=== PATIENT | female | born 1965 | race Caucasian/White ===

== ENCOUNTER → 2016-08-11 | Outpatient (CLI) | payer MEDICARE, OTHER ==
[~2016-08-11] MED LIST: /HCTZ25TA PO; /MOXI40TA PO; /PREG50CA PO; ACET500C PO; APRI0.37 PO; APRI0.372 PO; ASPI325T; BACTRIMDS PO; CALC600T10 OR; CENTTAB12 PO; COLA100C2; CYMB60CA3 PO; CYMBALTA PO; DIFLUC150 PO; ESTE500T PO; FISH1000 OR; FOLI800T OR; GUMMCHW PO; HUMIRA SQ; KEFL500C; KENALOG1 TOPICAL; LIAL1.2T PO; LIPITOR10 PO; LISI10TA2 PO; MACROBID PO; NEUR300C; NEUR400C OR; NEXIUM40 PO; OXYC-208 PO; PERC5TAB8; PRIL40CA OR; PRILOSEC20 PO; PROTONIX40 PO; SKELAXIN8 PO; SOMA350T PO; TOPR25TA OR; TRAM50TA2 PO; TYLENOL; VIACTIV CALCIUM; VITA100L PO; VITAMIN B COMPLE1 OR; XANA0.25; XANA0.25 OR; ZANTAC150 PO; ZELNORM PO; ZOCOR20 PO; [UNRECOGNIZED DRUG - OTHER]; [UNRECOGNIZED DRUG - OTHER] PO; [UNRECOGNIZED DRUG - OTHER] TOPICAL; [UNRECOGNIZED DRUG - OTHER] TOPICAL; [UNRECOGNIZED DRUG - OTHER] TOPICAL; atorvastatin PO; nucynta PO; savella PO; vicodin PO
--- NOTE | 2016-08-21 00:59 | ECWPNPC ---
PATIENT NAME: VAL WISDOM : 1965 GENDER: FEMALE VISIT DATE: 08/11/2016 DISCHARGE DATE: 08/11/16 0000 VISIT LOCKED DATE TIME: PHYSICIAN: GUMARO RODRIGUEZ RESOURCE: GUMARO RODRIGUEZ REASON FOR APPOINTMENT 1. BACK HISTORY OF PRESENT ILLNESS HISTORY OF PRESENT ILLNESS: HERE FFOR F/U ON AN URGENT BASIS.FELL 16 ON ICE.LANDED ON BACK HURTING NECK,HEAD AND LOW BACK.DIDNT GO TO ER.HAVING INCREASE IN LOW BACK PAIN /RIGHT LEG PAIN.CONTINUES W NECK PAIN.CONTINUES WITH USE OF DCS WHICH IS HELPFUL.C/O MILD CONCUSSION LIKE SYMPTOMS.RATING PAIN VAS 6/10.HERE TO SEE FADY TODAY TO CHECK LEAD PLACEMENT AFTER FALL INJURY. FALL RISK SCREENING: SCREENING :NO FALLS IN THE PAST YEAR CURRENT MEDICATIONS TAKING OMEPRAZOLE 40 MG CAPSULE DELAYED RELEASE 1 CAPSULE ORALLY ONCE DAILY TAKING STOOL SOFTENER 100 MG CAPSULE 1 CAPSULE NEEDED ORALLY NEEDED TAKING TOPROL XL 25 MG TABLET EXTENDED RELEASE 24 HOUR 1 TAB(S) P.O. ONCE A DAY TAKING CYMBALTA 60 MG CAPSULE DELAYED RELEASE PARTICLES 1 CAPSULE ORALLY ONCE A DAY TAKING HYDROCHLOROTHIAZIDE 12.5 12.5MG TABLET 1 TAB(S) P.O. ONCE A DAY TAKING XANAX 0.5 MG TABLET 1 TAB(S) ORALLY THREE TIMES DAILY NEEDED TAKING CALCIUM 600+D 600-800 MG-UNIT TABLET 2 ORALLY TWICE A DAY TAKING METHOTREXATE 2.5 MG TABLET 5 ORALLY ONCE A WEEK TAKING CLOBETASOL PROPIONATE 0.05 % OINTMENT 1 APPLICATION TO AFFECTED AREA EXTERNALLY TO AFFECTED AREA TWICE A WEEK TAKING ZYRTEC ALLERGY 10 MG TABLET 1 TABLET ORALLY ONCE A DAY TAKING TRAMADOL HCL 50 MG TABLET 1 TABLET NEEDED ORALLY EVERY 6 HRSMDD4 TAKING FOLIC ACID 800 MCG TABLET 1 TAB(S) P.O. OCC NOT-TAKING OXYCODONE HCL 5 MG TABLET 2 ORALLY 2 TAB 1HR PRE PROC MDD2 NOT-TAKING VALIUM 10 MG TABLET 1 ORALLY 1 TAB 1HR PRE PROC. MDD1 NOT-TAKING OXYCODONE HCL 5 MG TABLET 1 ORALLY EVERY 6 HRS PRN MDD3 NOT-TAKING VITAMIN B COMPLEX OTC TABLET 1 TABLET ORALLY ONCE A DAY MEDICATION LIST REVIEWED AND RECONCILED WITH THE PATIENT PAST MEDICAL HISTORY CROHNS DISEASE ANXIETY DEPRESSION HYPERLIPIDEMIA ESOPHAGEAL REFLUX HYPERTENSION PSORIATIC ARTHRITIS PSORIASIS ENVIRONMENTAL ALLERGIES LSIL PAP, COLP-MILD DYSPLASIA 2009 ASCUS, CANNOT EXCLUDE LSIL, NEG HPV (12/2011) ALLERGIES PENICILLIN (FOR ALLERGIES USE ONLY): HIVES: ALLERGY TAPE: HIVES: ALLERGY LATEX: HIVES: ALLERGY MORPHINE SULFATE: DYSPNEA: SIDE EFFECTS REVIEW OF SYSTEMS CONSTITUTIONAL: ANY CHANGE IN YOUR MEDICAL CONDITION? NO . CHILLS NO . FEVER NO . INFECTION: DO YOU HAVE NEW INFECTIONS? NO . DO YOU HAVE HISTORY OF MRSA? NO . MUSCULOSKELETAL: ANY NEW PATTERNS OF PAIN OR NUMBNESS? NO . GASTROENTEROLOGY: ANY NEW CHANGE IN BOWEL CONTROL? NO . GENITOURINARY: ANY NEW CHANGE IN BLADDER CONTROL? NO . IS THERE A CHANCE YOU COULD BE ? NO . HEMATOLOGY/LYMPH: DO YOU TAKE ANY BLOOD THINNERS? (FOR EXAMPLE- COUMADIN, PLAVIX, AGGRENOX, PLATEL, PRADAXA, OR XARELTO) NO . WHEN WAS YOUR LAST DOSE? DATE: TIME: . NEUROLOGY: HAVE YOU FALLEN IN THE PAST 6 MONTHS? YES-FELL ON THE ICE DECEMVER 30 . ANY NEW EXTREMITY NUMBNESS OR WEAKNESS? NO . CARDIOLOGY: DO YOU HAVE A PACEMAKER OR DEFIBRILLATOR? NO . RESPIRATORY: HAVE YOU BEEN SICK IN THE PAST WEEK? NO . FEVER NO . FLU LIKE SYMPTOMS? NO . COUGH NO . INTEGUMENTARY: DO YOU HAVE ANY RASHES OR OPEN SORES? NO . ALLERGIC/IMMUNO: ARE YOU ALLERGIC TO SHELLFISH OR IV DYE? NO . ANY NEW ALLERGIES? NO . PSYCHIATRIC: DO YOU HAVE THOUGHTS OF HURTING YOURSELF OR SOMEONE ELSE? NO . ARE YOU ABUSED, NEGLECTED, OR IN AN UNSAFE ENVIRONMENT? NO . ENDOCRINOLOGY: ARE YOU DIABETIC? NO . OTHER: DO YOU NEED ANY PRESCRIPTIONS? NO . IF YES, PLEASE LIST: ____ . ANY NEW PROBLEMS WITH YOUR MEDICATIONS? NO . WHEN DID YOU LAST EAT? ____ . WHEN DID YOU LAST DRINK? ____ . WHAT DID YOU LAST DRINK? ____ . NAME OF PERSON DRIVING YOU HOME? ____ . DO YOU HAVE ANY OTHER QUESTIONS OR CONCERNS NO . REVIEWED BY: PROVIDER: GUMARO HAYES . VITAL SIGNS WT 118 LBS, HT 62.5 IN, BMI 21.24 INDEX, BP 132/81 MM HG, HR 98 /MIN, RR 18 /MIN, TEMP 96.5 F, OXYGEN SAT % 97, NA INITIALS TL 1137, REVIEWED BY: AM. EXAMINATION GENERAL EXAMINATION: LUNGS:LUNG SOUNDS ARE CLEAR. HEART:HEART RATE REGULAR. MUSCULOSKELETAL:*. LUMBAR SACRAL SPINEMUSCLE STRENGTH TESTING 5/5 BILATERAL. PALPATION: POSITIVE FOR PAIN OVER L/S SPINE. POSITIVE FOR PAIN OVER L/S PARSPINALS.SPECIFIC POINT TENDERNESS OVER RSIJ. ROJM TESTING WITH MARKED INCREASE IN PAIN WITH EXTENSION OF SPINE. NORMAL STEADY GAIT.MULTIPLE PSORIATIC PLAQUES.. ASSESSMENTS CERVICALGIA - M54.2 (PRIMARY) MYALGIA - M79.1 TREATMENT CERVICALGIA START IBUPROFEN TABLET, 200 MG, 2, ORALLY, TID, 3 DAYS, 9, REFILLS 0 NOTES: MOIST HEAT /LAY FLAT X20MIN THREE TIMES PER DAY. PROCEDURE CODES FA211 ESTABILISHED PATIENT [facility] FACILITY CHARGE FOLLOW UP 4 WEEKS ELECTRONICALLY SIGNED BY FREDDY FLOWERS ON 08/20/2016 AT 01:26 PM EST DISCLAIMER : THIS IS A VISIT SUMMARY EXTRACTED FROM THE [employer] CHART. IT IS NOT A COPY OF THE [employer] PROGRESS NOTE. MTDLauren
== END ==
LOC: M PAIN 11:40
PROVIDERS: ATTEND Nurse Practitioner Family
DX: M54.5 Low back pain (principal); M79.661 Pain in right lower leg; W00.9XXA Unspecified fall due to ice and snow, initial encounter; M54.2 Cervicalgia; M79.1 Myalgia; K50.919 Crohn's disease, unspecified, with unspecified complications; F41.9 Anxiety disorder, unspecified; F32.9 Major depressive disorder, single episode, unspecified; E78.5 Hyperlipidemia, unspecified; K21.9 Gastro-esophageal reflux disease without esophagitis; I10 Essential (primary) hypertension; L40.52 Psoriatic arthritis mutilans; Z88.0 Allergy status to penicillin; L23.1 Allergic contact dermatitis due to adhesives; Z91.040 Latex allergy status; Z88.8 Allergy status to other drugs, medicaments and biological substances; Z79.891 Long term (current) use of opiate analgesic; Z79.899 Other long term (current) drug therapy; Y92.9 Unspecified place or not applicable; Y93.9 Activity, unspecified; Y99.8 Other external cause status

== ENCOUNTER → 2016-09-22 | Outpatient (CLI) | payer MEDICARE, OTHER ==
--- NOTE | 2016-09-22 23:33 | ECWPNPC ---
PATIENT NAME: VAL WISDOM : 1965 GENDER: FEMALE VISIT DATE: 09/22/2016 DISCHARGE DATE: 09/22/16 0000 VISIT LOCKED DATE TIME: PHYSICIAN: GUMARO RODRIGUEZ RESOURCE: GUMARO RODRIGUEZ REASON FOR APPOINTMENT 1. BACK HISTORY OF PRESENT ILLNESS HISTORY OF PRESENT ILLNESS: HERE FOR F/U .HAS BEEN HAVING LOW BACK SPASMS X 5 DAYS.FELL 12-16 ON ICE.LANDED ON BACK HURTING NECK,HEAD AND LOW BACK.DIDNT GO TO ER..CONTINUES W NECK PAIN.WILL BE SEEING DR. MOORE FOR EVALUATION OF NECK PAIN.CONTINUES WITH USE OF DCS WHICH IS HELPFUL.STATES RIGHT POSTERIOR LEG PAIN IS NOT HELPED WITH DCS.SHE CONTINUES TO HAVE GOOD PAIN CONTROL FOR LOW BACK WITH DCS.RATING PAIN VAS 6/10.REPORTS INTERMITTEN SPASMS THAT ARE SEVERE WHEN SHE TWISTS TO LEFT.SOME HELP WITH USE OF FLEXERIL 5MG. PAIN THE PATIENT DESCRIBES THE PAIN... THE PATIENT DESCRIBES THE PAIN... FALL RISK SCREENING: SCREENING :NO FALLS IN THE PAST YEAR CURRENT MEDICATIONS TAKING OMEPRAZOLE 40 MG CAPSULE DELAYED RELEASE 1 CAPSULE ORALLY ONCE DAILY TAKING STOOL SOFTENER 100 MG CAPSULE 1 CAPSULE NEEDED ORALLY NEEDED TAKING TOPROL XL 25 MG TABLET EXTENDED RELEASE 24 HOUR 1 TAB(S) P.O. ONCE A DAY TAKING CYMBALTA 60 MG CAPSULE DELAYED RELEASE PARTICLES 1 CAPSULE ORALLY ONCE A DAY TAKING HYDROCHLOROTHIAZIDE 12.5 12.5MG TABLET 1 TAB(S) P.O. ONCE A DAY TAKING XANAX 0.5 MG TABLET 1 TAB(S) ORALLY THREE TIMES DAILY NEEDED TAKING CALCIUM 600+D 600-800 MG-UNIT TABLET 2 ORALLY TWICE A DAY TAKING METHOTREXATE 2.5 MG TABLET 5 TABLETS ORALLY ONCE A WEEK TAKING CLOBETASOL PROPIONATE 0.05 % OINTMENT 1 APPLICATION TO AFFECTED AREA EXTERNALLY TO AFFECTED AREA TWICE A WEEK TAKING ZYRTEC ALLERGY 10 MG TABLET 1 TABLET ORALLY ONCE A DAY TAKING TRAMADOL HCL 50 MG TABLET 1 TABLET NEEDED ORALLY EVERY 6 HRSMDD4 TAKING FOLIC ACID 1 MG TABLET 1 TAB(S) ORALLY DAILY TAKING CYCLOBENZAPRINE HCL 5 MG TABLET 1 TABLET ORALLY THREE TIMES A DAY NOT-TAKING IBUPROFEN 200 MG TABLET 2 ORALLY TID NOT-TAKING OXYCODONE HCL 5 MG TABLET 2 ORALLY 2 TAB 1HR PRE PROC MDD2 NOT-TAKING VALIUM 10 MG TABLET 1 ORALLY 1 TAB 1HR PRE PROC. MDD1 NOT-TAKING OXYCODONE HCL 5 MG TABLET 1 ORALLY EVERY 6 HRS PRN MDD3 NOT-TAKING VITAMIN B COMPLEX OTC TABLET 1 TABLET ORALLY ONCE A DAY MEDICATION LIST REVIEWED AND RECONCILED WITH THE PATIENT PAST MEDICAL HISTORY CROHNS DISEASE ANXIETY DEPRESSION HYPERLIPIDEMIA ESOPHAGEAL REFLUX HYPERTENSION PSORIATIC ARTHRITIS PSORIASIS ENVIRONMENTAL ALLERGIES LSIL PAP, COLP-MILD DYSPLASIA 2009 ASCUS, CANNOT EXCLUDE LSIL, NEG HPV (12/2011) ALLERGIES PENICILLIN (FOR ALLERGIES USE ONLY): HIVES: ALLERGY TAPE: HIVES: ALLERGY LATEX: HIVES: ALLERGY MORPHINE SULFATE: DYSPNEA: SIDE EFFECTS VICODIN: RASH: ALLERGY AMOXICILLIN: RASH: ALLERGY SOCIAL HISTORY GENERAL: TOBACCO USE ARE YOU A:CURRENT SMOKER LEARNING BARRIERS / SPECIAL NEEDS ORIENTED TO PLAN OF CARE: PATIENT, PAIN MANAGEMENT PATIENT, ORIENTED TO PLAN OF CARE: PATIENT, PAIN MANAGEMENT PATIENT. NEW PATIENT PAIN DIARY TODAY'S VISITNOTES FROM 0-10, WHAT LEVEL IS YOUR PAIN TODAY?0 PAIN CLINIC PFS, CLERGY, PUBLIC HEALTH REFERRALS PFS REFERRAL NEEDED?NO CLERGY REFERRAL NEEDED?NO PUBLIC HEALTH REFERRAL NEEDED?NO WAS THE PROVIDER NOTIFIED OF ANY PERTINENT INFO?NO PFS REFERRAL NEEDED?NO CLERGY REFERRAL NEEDED?NO PUBLIC HEALTH REFERRAL NEEDED?NO WAS THE PROVIDER NOTIFIED OF ANY PERTINENT INFO?NO REVIEW OF SYSTEMS CONSTITUTIONAL: ANY CHANGE IN YOUR MEDICAL CONDITION? NO . RECENT ILLNESS DENIES . CHILLS NO . FEVER NO . WEIGHT LOSS DENIES . INFECTION: DO YOU HAVE NEW INFECTIONS? NO . DO YOU HAVE HISTORY OF MRSA? NO . MUSCULOSKELETAL: ANY NEW PATTERNS OF PAIN OR NUMBNESS? NO . GASTROENTEROLOGY: ANY NEW CHANGE IN BOWEL CONTROL? NO . GENITOURINARY: ANY NEW CHANGE IN BLADDER CONTROL? NO . IS THERE A CHANCE YOU COULD BE ? NO . HEMATOLOGY/LYMPH: DO YOU TAKE ANY BLOOD THINNERS? (FOR EXAMPLE- COUMADIN, PLAVIX, AGGRENOX, PLATEL, PRADAXA, OR XARELTO) NO . WHEN WAS YOUR LAST DOSE? DATE: TIME: . NEUROLOGY: HAVE YOU FALLEN IN THE PAST 6 MONTHS? NO, YES . ANY NEW EXTREMITY NUMBNESS OR WEAKNESS? NO . CARDIOLOGY: DO YOU HAVE A PACEMAKER OR DEFIBRILLATOR? NO . CHEST PAIN DENIES . SHORTNESS OF BREATH DENIES . RESPIRATORY: HAVE YOU BEEN SICK IN THE PAST WEEK? NO . FEVER NO . FLU LIKE SYMPTOMS? NO . COUGH NO, DENIES . SHORTNESS OF BREATH DENIES . INTEGUMENTARY: DO YOU HAVE ANY RASHES OR OPEN SORES? NO . ALLERGIC/IMMUNO: ARE YOU ALLERGIC TO SHELLFISH OR IV DYE? NO . ANY NEW ALLERGIES? NO . PSYCHIATRIC: DO YOU HAVE THOUGHTS OF HURTING YOURSELF OR SOMEONE ELSE? NO . ARE YOU ABUSED, NEGLECTED, OR IN AN UNSAFE ENVIRONMENT? NO . ENDOCRINOLOGY: ARE YOU DIABETIC? NO . OTHER: DO YOU NEED ANY PRESCRIPTIONS? NO . IF YES, PLEASE LIST: ____ . ANY NEW PROBLEMS WITH YOUR MEDICATIONS? NO . WHEN DID YOU LAST EAT? ____ . WHEN DID YOU LAST DRINK? ____ . WHAT DID YOU LAST DRINK? ____ . NAME OF PERSON DRIVING YOU HOME? ____ . DO YOU HAVE ANY OTHER QUESTIONS OR CONCERNS YES, APPOINTMENT WITH DR. MOORE 10/2016 . REVIEWED BY: PROVIDER: GUMARO HAYES . VITAL SIGNS WT 118 LBS, HT 62.5 IN, BMI 21.24 INDEX, BP 122/70 MM HG, HR 98 /MIN, RR 18 /MIN, TEMP 99.7 F, OXYGEN SAT % 98%, REVIEWED BY: MARTY. EXAMINATION GENERAL EXAMINATION: LUNGS:LUNG SOUNDS ARE CLEAR. HEART:HEART RATE REGULAR. MUSCULOSKELETAL:*, TRIGGER POINTS:BILAT. LUMBAR PARASPINALS.PAIN IN THID AREA INCREASES WITH TWISTING OR FLEXION OF SPINE.. DIAGNOSTIC: . ASSESSMENTS MYOFASCIAL PAIN - M79.1 (PRIMARY) POST LAMINECTOMY SYNDROME - M96.1 TREATMENT MYOFASCIAL PAIN CONTINUE CYCLOBENZAPRINE HCL TABLET, 5 MG, 1 TABLET, ORALLY, THREE TIMES A DAY REFERRAL TO:PHYSICAL THERAPY INNOVATIVEPHYSICAL THERAPIST REASON:ACUTE MUSCLE SPASM LOW BACK.HX OF FALL INJURY JULY 2016-MYOFASCIAL RELEASE 2X WEEK X6 WEEKS PROCEDURE CODES FA211 ESTABILISHED PATIENT [facility] FACILITY CHARGE G8730 PAIN ASSESS POS TOOL F/U PLAN DOC G8427 DOC MEDS VERIFIED W/PT OR RE DISPOSITION & COMMUNICATION FOLLOW UP 6 WEEKS ELECTRONICALLY SIGNED BY FREDDY FLOWERS ON 09/22/2016 AT 03:45 PM EST DISCLAIMER : THIS IS A VISIT SUMMARY EXTRACTED FROM THE [employer] CHART. IT IS NOT A COPY OF THE [employer] PROGRESS NOTE. MTDD
== END ==
LOC: M PAIN 14:40
PROVIDERS: ATTEND Nurse Practitioner Family
DX: Z09 Encounter for follow-up examination after completed treatment for conditions other than malignant neoplasm (principal); G89.29 Other chronic pain; M79.1 Myalgia; M96.1 Postlaminectomy syndrome, not elsewhere classified; K50.919 Crohn's disease, unspecified, with unspecified complications; F41.9 Anxiety disorder, unspecified; F32.9 Major depressive disorder, single episode, unspecified; E78.5 Hyperlipidemia, unspecified; K21.9 Gastro-esophageal reflux disease without esophagitis; I10 Essential (primary) hypertension; L40.52 Psoriatic arthritis mutilans; J30.89 Other allergic rhinitis; M54.40 Lumbago with sciatica, unspecified side; M53.3 Sacrococcygeal disorders, not elsewhere classified; L40.50 Arthropathic psoriasis, unspecified; M46.1 Sacroiliitis, not elsewhere classified; F17.200 Nicotine dependence, unspecified, uncomplicated; Z88.0 Allergy status to penicillin; L23.1 Allergic contact dermatitis due to adhesives; Z91.040 Latex allergy status; Z88.5 Allergy status to narcotic agent; Z88.1 Allergy status to other antibiotic agents; Z79.891 Long term (current) use of opiate analgesic; Z79.899 Other long term (current) drug therapy

== ENCOUNTER → 2017-01-31 | Outpatient (REF) | payer MEDICARE, OTHER ==
[2017-01-31 11:26] LABS: HEPATITIS B SURFACE ANTIBODY POSITIVE (POSITIVE)
[2017-02-02 00:06] LABS: ENDOMYSIAL ABY IgA Negative (Negative)
== END ==
LOC: M LAB REF 10:41
PROVIDERS: ATTEND Nurse Practitioner Adult Health
DX: N39.0 Urinary tract infection, site not specified (principal); K50.90 Crohn's disease, unspecified, without complications; K21.9 Gastro-esophageal reflux disease without esophagitis; L40.9 Psoriasis, unspecified

== ENCOUNTER → 2017-05-24 | Outpatient (CLI) | payer MEDICARE, BC ==
--- NOTE | 2017-05-24 17:04 | REPMRS ---
Patient History The patient states she had a clinical breast exam in 05/2017. Patient is postmenopausal. Family history of ovarian cancer in maternal grandmother at age 86. Digital Woman Screen Mammo: May 24, 2017 - Exam #: [id number] Bilateral CC and MLO view(s) were taken. Technologist: Sheila Brown, Technologist Prior study comparison: April 08, 2016, digital woman screen mammo performed at [facility] to [facility]. February 18, 2015, digital woman screen mammo performed at [facility] to [facility]. FINDINGS: The breast tissue is heterogeneously dense. This may lower the sensitivity of mammography. There has been no change in the appearance of the mammogram from the prior studies. There is a moderate amount of residual fibroglandular tissue which is fairly symmetric. There is no interval development of dominant mass, areas of architectural distortion, or clustered microcalcification typical of malignancy. ASSESSMENT: BI-RADS/ACR category 1 mammogram. Negative. Recommendation Routine screening mammogram in 1 year (for women over age 40). This mammogram was interpreted with the aid of an FDA-approved computer-aided dectection system. Electronically Signed By: Weston Thomas MD 05/24/17 9325
--- NOTE | 2017-05-26 09:32 | DEXA ---
AP SPINE L1 - L4 0.771 -1.9 -1.3 LT FEMUR TOTAL 0.759 -2.0 -1.4 RT FEMUR TOTAL TOTAL BODY TOTAL OTHER RADIUS 33% 0.856 -0.2 0.1 DUAL FEMUR FRAX* ASSESSMENT Risk factors: 10 year probability of fracture Major osteoporotic fracture % Hip fracture % COMMENTS: There is low bone density of the hips. There is low bone density of the left forearm. The density of the left forearm increased 5.0% since 04/22/2015. The density of the left hip has decreased 0.1% since 04/22/2015. The density of the right hip has increased 0.9% since 04/22/2015. The increased density of the left forearm does represent a significant change. The decreased density of the left hip does not represent a significant change. The increased density of the right hip does not represent a significant change. FOLLOW-UP: Recommendation for the next bone density exam: 2 years. INDRA
== END ==
LOC: M WHC 15:10
PROVIDERS: ATTEND Nurse Practitioner Women's Health
DX: Z01.419 Encounter for gynecological examination (general) (routine) without abnormal findings (principal); Z12.31 Encounter for screening mammogram for malignant neoplasm of breast; M85.89 Other specified disorders of bone density and structure, multiple sites; F17.200 Nicotine dependence, unspecified, uncomplicated; Z78.0 Asymptomatic menopausal state; Z80.41 Family history of malignant neoplasm of ovary
CPT/HCPCS: 77080; G0101; G0202

== ENCOUNTER → 2017-05-25 | Outpatient (REF) | payer MEDICARE, OTHER | LOC: M SFHCWAGY 07:56 | PROVIDERS: ATTEND Nurse Practitioner Women's Health | DX: Z12.4 Encounter for screening for malignant neoplasm of cervix (principal) ==

== ENCOUNTER → 2017-05-30 | Outpatient (REF) | payer MEDICARE, OTHER ==
[2017-06-03 08:06] LABS: IMMUNOGLOBULIN E, TOTAL 1775 IU/mL (0-100)
== END ==
LOC: M LAB REF 16:03
PROVIDERS: ATTEND Nurse Practitioner Adult Health
DX: L40.9 Psoriasis, unspecified (principal); Z91.040 Latex allergy status

== ENCOUNTER → 2018-04-28 | Outpatient (REF) | payer MEDICARE, OTHER, BC ==
[2018-04-28 18:34] LABS: TOTAL 25(OH) VITAMIN D 26.8 NG/ML (30.0-100.0)
== END ==
LOC: M LAB REF 17:33
DX: D64.9 Anemia, unspecified (principal); K50.90 Crohn's disease, unspecified, without complications
CPT/HCPCS: 82607

== ENCOUNTER → 2018-10-30 | Outpatient (CLI) | payer MEDICARE, BC ==
--- NOTE | 2018-10-30 12:37 | REPMRS ---
Patient History The patient states she had a clinical breast exam in 10/2018. Family history of ovarian cancer at age 86 in maternal grandmother. 3D TOMOSYNTHESIS WAS PERFORMED. Digital Woman Screen Mammo: October 30, 2018 - Exam #: [id number] Bilateral CC and MLO view(s) were taken. Technologist: Magalie Perry, Technologist Prior study comparison: May 24, 2017, digital woman screen mammo performed at [facility] to [facility]. April 08, 2016, digital woman screen mammo performed at [facility] to [facility]. FINDINGS: The breast tissue is heterogeneously dense. This may lower the sensitivity of mammography. There has been no change in the appearance of the mammogram from the prior studies. There is a moderate amount of residual fibroglandular tissue which is fairly symmetric. There is no interval development of dominant mass, areas of architectural distortion, or clustered microcalcification typical of malignancy. Assessment: BI-RADS/ACR category 1 mammogram. Negative Mammogram. Recommendation Routine screening mammogram in 1 year (for women over age 40). This mammogram was interpreted with the aid of an FDA-approved computer-aided dectection system. Electronically Signed By: Weston Thomas MD 10/30/18 [id number]
== END ==
LOC: M WHC 11:32
PROVIDERS: ATTEND Nurse Practitioner Women's Health
DX: Z12.31 Encounter for screening mammogram for malignant neoplasm of breast (principal); Z80.41 Family history of malignant neoplasm of ovary

== ENCOUNTER → 2018-10-31 | Outpatient (REF) | payer MEDICARE, OTHER | LOC: M LAB REF 12:01 | PROVIDERS: ATTEND Nurse Practitioner Adult Health | DX: D64.9 Anemia, unspecified (principal) ==

== ENCOUNTER → 2019-08-03 | Outpatient (REF) | payer MEDICARE, OTHER ==
[~2019-08-03] MED LIST changes: -/HCTZ25TA PO; -/MOXI40TA PO; -/PREG50CA PO; +AVEL1TAB2 PO; +HYDR-3644 PO; +LYRI50CA PO; +METO-1 OR; -TOPR25TA OR
[2019-08-03 18:23] LABS: C REACTIVE PROTEIN QUANTITATIV < 0.30 MG/DL (0.00-0.30)
[2019-08-03 18:35] LABS: TOTAL 25(OH) VITAMIN D 71.5 NG/ML (30.0-100.0); VITAMIN B12 LEVEL 566 PG/ML (247-911)
== END ==
LOC: M LAB REF 16:57
PROVIDERS: ATTEND Internal Medicine
DX: R10.31 Right lower quadrant pain (principal); K50.90 Crohn's disease, unspecified, without complications; Z86.010 Personal history of colon polyps

== ENCOUNTER → 2020-02-12 | Outpatient (REF) | payer MEDICARE | LOC: M SFHCWAGY 10:49 | PROVIDERS: ATTEND Nurse Practitioner Women's Health | DX: Z12.4 Encounter for screening for malignant neoplasm of cervix (principal) | CPT/HCPCS: 87624; G0123 ==

== ENCOUNTER → 2020-02-12 | Outpatient (CLI) | payer MEDICARE, OTHER ==
--- NOTE | 2020-02-12 16:17 | REPMRS ---
Patient History The patient states she had a clinical breast exam in February 2020. Family history of ovarian cancer at age 86 in maternal grandmother. 3D TOMOSYNTHESIS WAS PERFORMED. The Jeannie Cruz lifetime risk for breast cancer is 7.0%. MAGI Robin. Digital Woman Screen Mammo: February 12, 2020 - Exam #: [id number] Bilateral CC and MLO view(s) were taken. Technologist: Evelina Adams, Technologist Prior study comparison: October 30, 2018, bilateral digital woman screen mammo performed at [facility]. May 24, 2017, digital woman screen mammo performed at [facility]. FINDINGS: The breast tissue is heterogeneously dense. This may lower the sensitivity of mammography. There has been no change in the appearance of the mammogram from the prior studies. There is a moderate amount of residual fibroglandular tissue which is fairly symmetric. There is no interval development of dominant mass, areas of architectural distortion, or clustered microcalcification typical of malignancy. Assessment: BI-RADS/ACR category 1 mammogram. Negative Mammogram. Recommendation Routine screening mammogram in 1 year (for women over age 40). This mammogram was interpreted with the aid of an FDA-approved computer-aided dectection system. Electronically Signed By: Weston Thomas MD 02/12/20 2161
== END ==
LOC: M WHC 13:48
PROVIDERS: ATTEND Nurse Practitioner Women's Health
DX: Z12.31 Encounter for screening mammogram for malignant neoplasm of breast (principal)

== ENCOUNTER → 2020-12-25 | Outpatient (CLI) | payer MEDICARE, BC, OTHER ==
[~2020-12-25] MED LIST changes: +ISOVUE-300 61% 50ML VIAL As Ordered ONE
--- NOTE | 2020-12-25 11:44 | REP ---
INDICATION: CALCIFIC TENDINITIS OF LEFT SHOULDER. COMPARISON: None. TECHNIQUE: Following arthrogram procedure, axial CT left shoulder performed. Sagittal and coronal reconstruction images performed. FINDINGS: There is no acute fracture or dislocation. There is 10 x 12 x 6 mm calcification in the distal supraspinatus tendon. There is no extension of glenohumeral joint contrast into the subacromial or subdeltoid bursa, with no definite evidence of a rotator cuff tendon tear. There is mild narrowing and hypertrophic change at the acromioclavicular joint. The acromion is type 2. The biceps tendon is within the bicipital groove. There is no Hill Sachs deformity. Biceps labral complex is grossly intact. There is no evidence of a labral tear. There is mild chondromalacia at the glenohumeral joint with no focal osteochondral defect. IMPRESSION: 10 x 12 x 6 mm calcification within the distal supraspinatus tendon. No CT arthrographic evidence of rotator cuff tear. Mild hypertrophic degenerative changes acromioclavicular joint with a type 2 acromion. No evidence of a labral tear. <Electronically signed by Weston Thomas > 12/25/20 [id number]
--- NOTE | 2020-12-25 16:35 | REP ---
INDICATION: CALCIFIC TENDINITIS OF LEFT SHOULDER. COMPARISON: None TECHNIQUE: The procedure was performed by CHRISTINA Doll, under the direct supervision of Dr. Thomas. The benefits and risks of the procedure were explained to the patient, and an informed consent was obtained. Directly prior to the start of the procedure, a formal time-out was completed in the procedure room. The left glenohumeral joint space was localized using fluoroscopic guidance. The skin was prepped and draped in a sterile fashion. Approximately 5 mL of 1% Lidocaine 10 mg/ml was used as a local anesthetic. Using fluoroscopic guidance, a #22 gauge spinal needle was inserted and advanced into the left glenohumeral joint space. Approximately 12 mL of Isovue 300 was injected to verify placement and for postprocedural imaging. The needle was removed and the patient was taken to CT for post procedural imaging. FINDINGS: The patient tolerated the procedure well and there were no immediate complications. IMPRESSION: Fluoroscopic guided intra-articular CT arthrogram of the left shoulder. 0.1 minutes of fluoroscopy time was utilized for this procedure. Some fluoroscopic images are performed with last image hold technology. These images require no additional radiation. <Electronically signed by Rina Abbasi > 12/25/20 1201 <Electronically signed by Weston Thomas > 12/25/20 [id number]
== END ==
LOC: M RADPRO 08:50
PROVIDERS: ATTEND Physician Assistant
DX: M75.32 Calcific tendinitis of left shoulder (principal)
CPT/HCPCS: 23350; 73201; 77002; Q9967

== ENCOUNTER → 2021-03-03 | Outpatient (CLI) | payer MEDICARE, BC ==
[~2021-03-03] MED LIST changes: -ISOVUE-300 61% 50ML VIAL As Ordered ONE
--- NOTE | 2021-03-04 09:45 | REPMRS ---
Patient History The patient states she had a clinical breast exam in February 2021. Family history of ovarian cancer at age 86 in maternal grandmother. Patient states no breast complaints today. Patient has signed MRS History Sheet. Digital Woman Screen Mammo: March 03, 2021 - Exam #: [id number] Bilateral CC and MLO view(s) were taken. Technologist: Magalie Perry, Technologist Prior study comparison: February 12, 2020, bilateral digital woman screen mammo performed at [facility]. October 30, 2018, bilateral digital woman screen mammo performed at [facility]. FINDINGS: The breast tissue is heterogeneously dense. This may lower the sensitivity of mammography. Screening. Digital screening (2D) mammography was performed bilaterally in the CC and MLO projections. Additionally, breast tomosynthesis (3D mammography) was performed bilaterally in the CC and MLO projections. Todays exam was compared to the prior exam/exams. By history, the patient has no complaints of a palpable breast abnormality or other significant breast complaints. The breasts are unchanged in size and shape. Once again, dense heterogenous fibroglandular elements are seen bilaterally in a stable appearing pattern but to such a degree that the sensitivity of the mammogram in detecting cancer is decreased.There are no camila-soft tissue densities or spiculated masses. There is no internal architectural distortion. Once again, stable benign appearing calcifications are seen.There are no suspicious camila-calcific clusters. Skin thickening or nipple retraction is not present. IMPRESSION: BI-RADS Category 2- Benign Findings. There is no evidence of malignant alteration of the breasts. Followup examination recommended in one year. The Volpara volumetric breast density category is C, the breasts are heterogenously dense which may obscure small masses. This mammogram was read with the assistance of [employer],an FDA approved computer aided detection system for mammography. The lifetime Tyrer-Cuzick score is 6.8 % Due to the density of the breasts or Tyrer Cuzick score of 20% or greater, MRI/whole breast screening ultrasound is warranted. Negative x-ray reports should not delay surgical consultation if a dominant or clinically suspicious mass is present. Not all breast cancers can be identified by mammography. Therefore, we recommend that you continue to perform regular breast self-examination and physical examination and then promptly contact your physician of any concerns or changes. Adenosis and dense breasts may obscure an underlying neoplasm. Assessment: BI-RADS/ACR category 2 mammogram. Benign Findings. Recommendation Routine screening mammogram of both breasts in 1 year. Electronically Signed By: Gene Gutierrez DO 03/04/21 0912
== END ==
LOC: M WHC 15:38
PROVIDERS: ATTEND Nurse Practitioner Women's Health
DX: Z01.419 Encounter for gynecological examination (general) (routine) without abnormal findings (principal); Z12.31 Encounter for screening mammogram for malignant neoplasm of breast; N95.2 Postmenopausal atrophic vaginitis
CPT/HCPCS: 77063; 77067; G0101

== ENCOUNTER → 2021-05-22 | Outpatient (CLI) | payer MEDICARE, BC, OTHER ==
[~2021-05-22] MED LIST changes: +ISOVUE-300 61% 50ML VIAL As Ordered ONE
--- NOTE | 2021-05-22 11:51 | REP ---
INDICATION: OTHER SYNOVITIS AND TENOSYNOVITIS, R SHOULDER. COMPARISON: None. TECHNIQUE: Helical scanning with 3 x 3 mm increments after the intra-articular injection of contrast. FINDINGS: Mild hypertrophic degenerative changes suspected in the acromioclavicular joint. The acromion process is type 3. None of the injected contrast has migrated superior to the supraspinatus tendon. Small amount of contrast is seen undermining the superior labrum. IMPRESSION: 1. 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 2. Small amount of contrast seen in the superior labrum as described above but most consistent with a sublabral foramen. Further evaluation with MRI should be considered. <Electronically signed by Gene Gutierrez > 05/22/21 [id number]
--- NOTE | 2021-05-22 16:21 | REP ---
INDICATION: OTHER SYNOVITIS AND TENOSYNOVITIS, R SHOULDER. COMPARISON: None. TECHNIQUE: The procedure was performed under the direct supervision of Dr. Thomas. The benefits and risks including but not limited to pain infection bleeding and anaphylaxis were explained to the patient and informed consent was obtained. The right glenohumeral joint space was localized using fluoroscopic guidance. The skin was prepped and draped in a sterile fashion. 1% lidocaine was used as a local anesthetic. Using fluoroscopic guidance a 22 gauge needle was inserted and advanced into the joint. 11 mL of Isovue-300 was injected. The needle was removed and the patient was taken to CT scan for postprocedural imaging. The patient tolerated the procedure well and there were no immediate complications. Less than 6 seconds of fluoroscopy time was utilized for this procedure. FINDINGS: None IMPRESSION: Fluoro guidance for right CT shoulder arthrogram injection. <Electronically signed by Tien Rivera > 05/22/21 1611 <Electronically signed by Weston Thomas > 05/22/21 9744
== END ==
LOC: M RADPRO 10:18
PROVIDERS: ATTEND Physician Assistant
DX: R93.7 Abnormal findings on diagnostic imaging of other parts of musculoskeletal system (principal); M65.811 Other synovitis and tenosynovitis, right shoulder
CPT/HCPCS: 23350; 73201; 77002; Q9967

== ENCOUNTER → 2021-08-12 | Outpatient (REF) | payer MEDICARE, BC, OTHER ==
[~2021-08-12] MED LIST changes: -ISOVUE-300 61% 50ML VIAL As Ordered ONE
== END ==
LOC: M LAB REF 16:47
PROVIDERS: ATTEND Physician Assistant Medical
DX: E83.52 Hypercalcemia (principal)

== ENCOUNTER → 2021-09-08 | Outpatient (CLI) | payer MEDICARE, BC, OTHER | LOC: M RAD 12:39 | PROVIDERS: ATTEND Physician Assistant Medical | DX: Z12.2 Encounter for screening for malignant neoplasm of respiratory organs (principal); R91.1 Solitary pulmonary nodule; Z87.891 Personal history of nicotine dependence ==

== ENCOUNTER → 2021-09-14 | Outpatient (CLI) | payer MEDICARE, OTHER | LOC: M PAIN 15:15 | PROVIDERS: ATTEND Anesthesiology | DX: M54.50 Low back pain, unspecified (principal); G89.29 Other chronic pain; G47.30 Sleep apnea, unspecified; K21.9 Gastro-esophageal reflux disease without esophagitis; Z86.59 Personal history of other mental and behavioral disorders; Z88.0 Allergy status to penicillin; Z88.1 Allergy status to other antibiotic agents; Z88.5 Allergy status to narcotic agent; Z91.040 Latex allergy status; Z91.09 Other allergy status, other than to drugs and biological substances; Z96.89 Presence of other specified functional implants; Z79.899 Other long term (current) drug therapy ==

== ENCOUNTER → 2021-10-22 | Outpatient (CLI) | payer MEDICARE, OTHER | LOC: M PAIN 13:30 | PROVIDERS: ATTEND Anesthesiology | DX: M51.16 Intervertebral disc disorders with radiculopathy, lumbar region (principal); K50.90 Crohn's disease, unspecified, without complications; F41.9 Anxiety disorder, unspecified; F32.A Depression, unspecified; E78.5 Hyperlipidemia, unspecified; K21.9 Gastro-esophageal reflux disease without esophagitis; I10 Essential (primary) hypertension; L40.50 Arthropathic psoriasis, unspecified; J30.9 Allergic rhinitis, unspecified; Z88.0 Allergy status to penicillin; Z88.5 Allergy status to narcotic agent; Z91.040 Latex allergy status; Z91.048 Other nonmedicinal substance allergy status; Z79.1 Long term (current) use of non-steroidal anti-inflammatories (NSAID); Z79.891 Long term (current) use of opiate analgesic ==

== ENCOUNTER → 2021-11-11 | Outpatient (CLI) | payer MEDICARE, BC, OTHER ==
[~2021-11-11] MED LIST changes: +ALPR1TAB3 PO; +ERGO500029 PO; +FOLI1TAB11 PO; +ILUM100S SC; +LOSA50TA28 PO; +METO1TAB32 PO; +OMEP40CA5 PO; +ONDA4TAB6 PO; +PRIS1TAB PO; +SIMV40TA20 PO
== END ==
LOC: M LABSMTC 10:13
PROVIDERS: ATTEND Anesthesiology
DX: Z01.818 Encounter for other preprocedural examination (principal); Z20.822 Contact with and (suspected) exposure to COVID-19

== ENCOUNTER 2021-11-16 11:25 | Day surgery (SDC) | payer MEDICARE, BC, OTHER ==
[~2021-11-16] VITALS: Ht 154.9 cm; Wt 60.4 kg
[~2021-11-16 11:25] MED LIST changes: +LR 1,000 ML IV ONE; +VANCOMYCIN HCL 1,000 MG, VIAL MATE ADAPTER 1 EACH in NS 250 ML IV ONE
[2021-11-16] MEDS ORDERED: THROMBIN SOLN 20,000 UNITS KIT As Ordered ONE (12:26)
[2021-11-16] MEDS ORDERED: LIDOCAINE W/EPINEPHRINE 1% 20ML VIAL As Ordered ONE (12:26)
[2021-11-16] MEDS ORDERED: propofoL 200 MG/20 ML VIAL As Ordered ONE (13:00)
[2021-11-16] MEDS ORDERED: ONDANSETRON 4MG/2ML VIAL As Ordered ONE (13:00)
[2021-11-16] MEDS ORDERED: LIDOCAINE 2% 100MG/5ML SDV (FOR ANES.) As Ordered ONE (13:00)
[2021-11-16] MEDS ORDERED: MIDAZOLAM INJ 2MG/2ML VIAL (J2250 PER 1MG) As Ordered ONE ×2 (13:01→13:49)
[2021-11-16] MEDS ORDERED: fentaNYL 100 MCG/2 ML INJECTION As Ordered ONE (13:01)
[2021-11-16] MEDS ORDERED: GENTAMICIN SULF 80MG/2ML VIAL As Ordered ONE (13:41)
[2021-11-16] MEDS ORDERED: KETAMINE HCL 200 MG/20 ML VIAL As Ordered ONE (13:47)
[2021-11-16] MEDS ORDERED: PERCOCET 5MG/325MG TAB PO PRN (16:15)
[2021-11-16] MEDS ORDERED: LR 1,000 ML IV SCH (16:15)
[2021-11-16] MEDS ORDERED: ONDANSETRON 4MG/2ML VIAL IV PRN (16:15)
[2021-11-16] MEDS ORDERED: fentaNYL 100 MCG/2 ML INJECTION IV PRN (16:15)
[2021-11-16] MEDS ORDERED: ACETAMINOPHEN 500 MG TAB PO ONE (16:20)
[2021-11-16 16:25] VITALS: BP 151/84
== END 2021-11-16 16:30 | disposition home or self-care (01) ==
LOC: M SDC 11:25
PROVIDERS: ATTEND Anesthesiology
DX: M54.50 Low back pain, unspecified (principal); Z45.42 Encounter for adjustment and management of neurostimulator; I10 Essential (primary) hypertension; L40.9 Psoriasis, unspecified; G47.33 Obstructive sleep apnea (adult) (pediatric); E78.5 Hyperlipidemia, unspecified; K21.9 Gastro-esophageal reflux disease without esophagitis; F12.10 Cannabis abuse, uncomplicated; Z87.891 Personal history of nicotine dependence; F41.9 Anxiety disorder, unspecified; F32.9 Major depressive disorder, single episode, unspecified; K50.90 Crohn's disease, unspecified, without complications; Z79.899 Other long term (current) drug therapy; Z88.0 Allergy status to penicillin; Z91.040 Latex allergy status; Z88.5 Allergy status to narcotic agent
CPT/HCPCS: 63685; 76000; C1820; J1580; J2250; J2405; J3010; J3370

== ENCOUNTER → 2021-11-24 | Outpatient (CLI) | payer MEDICARE, OTHER ==
[~2021-11-24] MED LIST changes: -LR 1,000 ML IV ONE; -VANCOMYCIN HCL 1,000 MG, VIAL MATE ADAPTER 1 EACH in NS 250 ML IV ONE
== END ==
LOC: M PAIN 14:00
PROVIDERS: ATTEND Anesthesiology
DX: M51.16 Intervertebral disc disorders with radiculopathy, lumbar region (principal); G89.29 Other chronic pain; K21.9 Gastro-esophageal reflux disease without esophagitis; Z86.59 Personal history of other mental and behavioral disorders; Z87.891 Personal history of nicotine dependence; Z88.0 Allergy status to penicillin; Z88.1 Allergy status to other antibiotic agents; Z88.5 Allergy status to narcotic agent; Z91.040 Latex allergy status; Z91.09 Other allergy status, other than to drugs and biological substances; Z79.899 Other long term (current) drug therapy

== ENCOUNTER → 2021-12-25 | Outpatient (CLI) | payer MEDICARE, BC, OTHER ==
[~2021-12-25] MED LIST changes: +ISOVUE-370 76% 100ML VIAL As Ordered ONE
== END ==
LOC: M RAD 09:05
PROVIDERS: ATTEND Physician Assistant Medical
DX: R91.1 Solitary pulmonary nodule (principal); I70.0 Atherosclerosis of aorta; K76.9 Liver disease, unspecified
CPT/HCPCS: 71260; Q9967

== ENCOUNTER → 2021-12-30 | Outpatient (CLI) | payer MEDICARE, OTHER ==
[~2021-12-30] MED LIST changes: -ISOVUE-370 76% 100ML VIAL As Ordered ONE
== END ==
LOC: M PAIN 14:15
PROVIDERS: ATTEND Anesthesiology
DX: M54.50 Low back pain, unspecified (principal); M51.16 Intervertebral disc disorders with radiculopathy, lumbar region; G89.29 Other chronic pain; Z96.89 Presence of other specified functional implants; Z87.891 Personal history of nicotine dependence; Z79.899 Other long term (current) drug therapy

== ENCOUNTER → 2022-03-25 | Outpatient (CLI) | payer MEDICARE, BC, OTHER | LOC: M WHC 10:08 | PROVIDERS: ATTEND Nurse Practitioner Family | DX: Z13.820 Encounter for screening for osteoporosis (principal); M81.0 Age-related osteoporosis without current pathological fracture ==

== ENCOUNTER → 2022-03-25 | Outpatient (CLI) | payer MEDICARE, BC, OTHER | LOC: M WHC 10:12 | PROVIDERS: ATTEND Nurse Practitioner Family | DX: Z12.31 Encounter for screening mammogram for malignant neoplasm of breast (principal) ==

== ENCOUNTER → 2022-03-25 | Outpatient (REF) | payer MEDICARE, OTHER | LOC: M PLALAB 10:08 | PROVIDERS: ATTEND Nurse Practitioner Family | DX: Z12.4 Encounter for screening for malignant neoplasm of cervix (principal) ==

== ENCOUNTER → 2022-10-21 | Outpatient (CLI) | payer MEDICARE, BC, OTHER ==
[~2022-10-21] MED LIST changes: +ISOVUE-370 76% 100ML VIAL As Ordered ONE
== END ==
LOC: M RAD 14:05
PROVIDERS: ATTEND Physician Assistant Medical
DX: R91.1 Solitary pulmonary nodule (principal); K76.0 Fatty (change of) liver, not elsewhere classified; K80.20 Calculus of gallbladder without cholecystitis without obstruction; R93.3 Abnormal findings on diagnostic imaging of other parts of digestive tract; Z98.1 Arthrodesis status; M51.44 Schmorl's nodes, thoracic region
CPT/HCPCS: 71260; Q9967

== ENCOUNTER → 2023-04-14 | Outpatient (CLI) | payer MEDICARE, BC, OTHER ==
[~2023-04-14] MED LIST changes: -ISOVUE-370 76% 100ML VIAL As Ordered ONE
== END ==
LOC: M WHC 09:22
PROVIDERS: ATTEND Nurse Practitioner Family
DX: Z12.31 Encounter for screening mammogram for malignant neoplasm of breast (principal)

== ENCOUNTER → 2023-05-06 | Outpatient (REF) | payer MEDICARE, BC, OTHER | LOC: M LAB REF 11:30 | PROVIDERS: ATTEND Physician Assistant Medical | DX: K50.90 Crohn's disease, unspecified, without complications (principal); D64.9 Anemia, unspecified ==

== ENCOUNTER → 2023-08-15 | Outpatient (CLI) | payer MEDICARE, BC, OTHER ==
[~2023-08-15] MED LIST changes: +ISOVUE-370 76% 100ML VIAL ONE
== END ==
LOC: M PLAIMG 13:20
PROVIDERS: ATTEND Physician Assistant Medical
DX: R91.8 Other nonspecific abnormal finding of lung field (principal); J47.9 Bronchiectasis, uncomplicated; J84.9 Interstitial pulmonary disease, unspecified; K80.20 Calculus of gallbladder without cholecystitis without obstruction
CPT/HCPCS: 71260; Q9967

== ENCOUNTER → 2024-05-11 | Outpatient (REF) | payer MEDICARE, BC ==
[~2024-05-11] MED LIST changes: -ISOVUE-370 76% 100ML VIAL ONE; +ONDA-282 PO; -ONDA4TAB6 PO
[2024-05-15 14:02] LABS: HPV APTIMA Not Detected (Not Detected)
== END ==
LOC: M SFHCWAGY 17:04
PROVIDERS: ATTEND Nurse Practitioner Family
DX: Z12.4 Encounter for screening for malignant neoplasm of cervix (principal); Z77.9 Other contact with and (suspected) exposures hazardous to health; N95.2 Postmenopausal atrophic vaginitis
CPT/HCPCS: 87624; G0123

== ENCOUNTER → 2024-05-11 | Outpatient (CLI) | payer MEDICARE, BC | LOC: M WHC 13:00 | PROVIDERS: ATTEND Nurse Practitioner Family | DX: Z12.31 Encounter for screening mammogram for malignant neoplasm of breast (principal); Z13.820 Encounter for screening for osteoporosis; R92.333 Mammographic heterogeneous density, bilateral breasts ==

== ENCOUNTER → 2024-10-04 | Outpatient (CLI) | payer MEDICARE, BC ==
[~2024-10-04] MED LIST changes: +ISOVUE-370 76% 100ML VIAL As Ordered ONE
== END ==
LOC: M RAD 07:14
PROVIDERS: ATTEND Physician Assistant Medical
DX: R91.1 Solitary pulmonary nodule (principal); K44.9 Diaphragmatic hernia without obstruction or gangrene; K80.20 Calculus of gallbladder without cholecystitis without obstruction; I70.0 Atherosclerosis of aorta; J43.9 Emphysema, unspecified; J98.4 Other disorders of lung
CPT/HCPCS: 71260; Q9967

== ENCOUNTER → 2025-05-14 | Outpatient (CLI) | payer MEDICARE, BC ==
[~2025-05-14] MED LIST changes: -ISOVUE-370 76% 100ML VIAL As Ordered ONE
== END ==
LOC: M WHC 15:13
PROVIDERS: ATTEND Physician Assistant
DX: Z12.31 Encounter for screening mammogram for malignant neoplasm of breast (principal); R92.333 Mammographic heterogeneous density, bilateral breasts

== ENCOUNTER → 2025-05-14 | Outpatient (REF) | payer MEDICARE, BC ==
[2025-05-16 15:17] LABS: HPV APTIMA Not Detected (Not Detected)
== END ==
LOC: M PLALAB 16:21
PROVIDERS: ATTEND Physician Assistant
DX: Z12.4 Encounter for screening for malignant neoplasm of cervix (principal)
CPT/HCPCS: 87624; G0123

== ENCOUNTER → 2025-07-10 | Outpatient (REF) | payer MEDICARE, BC | LOC: M LAB REF 17:25 | PROVIDERS: ATTEND Physician Assistant Medical | DX: N39.0 Urinary tract infection, site not specified (principal) ==